=== PATIENT | female | born 1950 | race Native Hawaiian/Other Pacific Islander ===

== ENCOUNTER 2021-02-23 16:05 | Outpatient (CLI) | payer OTHER | END 2021-02-23 19:17 | disposition home or self-care (01) | LOC: RAD 16:05 | PROVIDERS: ATTEND Nurse Practitioner Family | DX: M05.79 Rheumatoid arthritis with rheumatoid factor of multiple sites without organ or systems involvement (principal); M06.4 Inflammatory polyarthropathy; M19.041 Primary osteoarthritis, right hand; M19.042 Primary osteoarthritis, left hand; M85.89 Other specified disorders of bone density and structure, multiple sites ==